=== PATIENT | female | born 1960 | race Caucasian/White ===

== ENCOUNTER 2017-03-21 05:31 | Inpatient (IN) | payer MEDICARE ==
[~2017-03-21] VITALS: Ht 157.5 cm; Wt 102.0 kg
[~2017-03-21 05:31] MED LIST: ESTR2TAB PO; HYDR200T3 PO; MEDR5TAB3 PO; METH2.5T PO; PARO40TA2 PO
[2017-03-21] MEDS ORDERED: LACTATED RINGER'S 1000 ML IV PRN (07:00)
[2017-03-21] MEDS ORDERED: SCOPOLAMINE 1.5 MG PATCH T-DERMAL SCH (07:00)
[2017-03-21] MEDS ORDERED: POVIDONE IODINE 5% (ANTISEPSIS KIT) 4 APPLICATIONS EACH NARE PRN (07:00)
[2017-03-21] MEDS ORDERED: METOPROLOL TARTRATE 25 MG TAB PO PRN (07:00)
[2017-03-21] MEDS ORDERED: CHLORHEXIDINE GLUCONATE 2 % 1 PACK (2 CLOTHS) TOPICAL PRN (07:00)
[2017-03-21] MEDS ORDERED: INSULIN HUMAN REGULAR 1,000 UNITS/10 ML VIAL SQ PRN (07:00)
[2017-03-21] MEDS ORDERED: ACETAMINOPHEN 1000 MG/100 ML 100 ML IV SCH (07:00)
[2017-03-21] MEDS ORDERED: APREPITANT 40 MG CAP PO SCH (07:00)
[2017-03-21] MEDS ORDERED: ONDANSETRON HCL 4 MG/2 ML VIAL IV PUSH SCH (07:00)
[2017-03-21] MEDS ORDERED: SODIUM CHLORID 0.9% 500 ML IV PRN (07:00)
[2017-03-21] MEDS ORDERED: metroNIDAZOLE 500 MG INJ 100 ML IV ONE (11:00)
--- NOTE | 2017-03-21 11:38 | HHI.PR ---
Immediate Post Op Note Procedure Date: Mar 21, 2017 Pre Op Diagnosis: morbid obesity, bmi 40, hypercholesteremia, RA Post Op Diagnosis: same Surgeon: Vishal Hawthorne MD Targeting Acquisition Officer(s): sergio Procedure: lap sleeve gastrectomy hiatal hernia repair Findings: no leak Complications: none Specimen(s) removed: none Estimated blood loss: 5cc Anesthesia: General Drains: None Patient to: PACU Patient Condition: Good Vishal Hawthorne MD Mar 21, 2017 11:38
[2017-03-21] MEDS: ceFAZolin 2 GM PREMIX 50 ML IV SCH ×2 (12:21→12:23)
[2017-03-21] MEDS ORDERED: BUPIVACAINE/EPINEPHRINE 0.25% 50 ML VIAL ONE (12:26)
[2017-03-21] MEDS ORDERED: DO NOT ADM ANY ANTICOAGULANT DRUGS PRN ×3 (13:10→19:43)
[2017-03-21] MEDS ORDERED: MIDAZOLAM HCL 2 MG/2 ML VIAL ONE (13:14)
[2017-03-21] MEDS ORDERED: diphenhydrAMINE HCL 50 MG/ML VIAL IV PUSH PRN (13:15)
[2017-03-21] MEDS: SODIUM CHLORIDE 0.9% FLUSH 10 ML FLUSH IV FLUSH SCH ×2 (13:15→20:45)
[2017-03-21] MEDS ORDERED: ACETAMINOPHEN 325MG/HYDROcodone 7.5MG/15ML UDC PO PRN (13:15)
[2017-03-21] MEDS ORDERED: Post-op Orders (for Pharmacy) OTHER ONE (13:15)
[2017-03-21] MEDS ORDERED: ENALAPRILAT 1.25 MG/ML VIAL IV PUSH PRN (13:15)
[2017-03-21] MEDS ORDERED: diphenhydrAMINE HCL ELIXIR 12.5 MG/5 ML CUP PO PRN (13:15)
[2017-03-21] MEDS ORDERED: ONDANSETRON HCL 4 MG/2 ML VIAL IV PUSH PRN (13:15)
[2017-03-21] MEDS ORDERED: SODIUM CHLORIDE 0.9% FLUSH 10 ML FLUSH IV FLUSH PRN (13:15)
[2017-03-21] MEDS ORDERED: *morphine SULFATE 10 MG/ML PERIprocedure ONLY ONE ×2 (13:31→14:35)
[2017-03-21] MEDS ORDERED: PANTOPRAZOLE SOD 40 MG DELAYED RELEASE TAB PO SCH (14:00)
[2017-03-21] MEDS: METOCLOPRAMIDE HCL 10 MG/2 ML VIAL IV PUSH SCH ×2 (14:00→20:44)
[2017-03-21] MEDS ORDERED: PANTOPRAZOLE SODIUM 40 MG VIAL ONE (14:14)
[2017-03-21] MEDS ORDERED: MORPHINE SULFATE 30 MG/30 ML PCA ONE (14:35)
[2017-03-21] MEDS: D5-1/2 NS + KCL 20 MEQ INJ 1,000 ML IV SCH (14:45)
[2017-03-21] MEDS ORDERED: NALOXONE HCL 0.4 MG/ML AMP IV PUSH PRN (15:00)
[2017-03-21] MEDS: PANTOPRAZOLE SODIUM 40 MG VIAL IV SCH (15:00)
[2017-03-21] MEDS ORDERED: MORPHINE SULFATE 30 MG/30 ML PCA IV SCH (15:00)
[2017-03-21 16:00] VITALS: BP 181/92; PULSE 70; RESP 16; TEMP 97.4; O2SAT 95
[2017-03-21] MEDS: ACETAMINOPHEN 1000 MG/100 ML 100 ML IV SCH (16:40)
[2017-03-21] MEDS: ENOXAPARIN SODIUM 40 MG/0.4 ML SYRINGE SQ SCH (16:50)
[2017-03-21 18:54] VITALS: BP 192/97
[2017-03-21 20:00] VITALS: BP 166/76; PULSE 52; RESP 17; TEMP 99.1; O2SAT 94
[2017-03-21] MEDS ORDERED: cloNIDine HCL 0.1 MG/24 HR PATCH T-DERMAL SCH (21:00)
[2017-03-21] MEDS ORDERED: REMOVE OLD PATCH T-DERMAL SCH (21:00)
[2017-03-21] MEDS: PCA - TOTAL MG MORPHINE DELIVERED PER SHIFT SCH (22:00)
[2017-03-21] MEDS: metroNIDAZOLE 500 MG INJ 100 ML IV SCH (22:08)
[2017-03-22] VITALS (7 sets, daily range): BP systolic 115–139; BP diastolic 63–72; PULSE 62–86; RESP 17–18; TEMP 98.3–101.9; O2SAT 95–98
[2017-03-22] MEDS: METOCLOPRAMIDE HCL 10 MG/2 ML VIAL IV PUSH SCH ×2 (02:43→08:19)
[2017-03-22] MEDS: metroNIDAZOLE 500 MG INJ 100 ML IV SCH ×2 (04:32→10:29)
[2017-03-22] MEDS: PCA - TOTAL MG MORPHINE DELIVERED PER SHIFT SCH (06:00)
[2017-03-22] MEDS: D5-1/2 NS + KCL 20 MEQ INJ 1,000 ML IV SCH ×4 (06:00→22:51)
[2017-03-22] MEDS: ACETAMINOPHEN 1000 MG/100 ML 100 ML IV SCH ×3 (06:07→10:26)
[2017-03-22] MEDS: SODIUM CHLORIDE 0.9% FLUSH 10 ML FLUSH IV FLUSH SCH ×2 (08:20→22:58)
[2017-03-22 08:37] LABS: AUTOMATED NEUTROPHIL # 4.8 TH/MM3 (1.8-7.7); BASOPHIL % 0.1 % (0.0-2.0); EOSINOPHIL % 0.1 % (0.0-4.0); HEMATOCRIT 35.5 % (35.0-46.0); HEMOGLOBIN 12.2 GM/DL (11.6-15.3); LYMPH % 8.9 % (9.0-44.0); LYMPHOCYTE # 0.5 TH/MM3 (1.0-4.8); MEAN CELL VOLUME 95.2 FL (80.0-100.0); MEAN CORPUSCULAR HEMOGLOBIN 32.9 PG (27.0-34.0); MEAN CORPUSCULAR HGB CONC 34.5 % (32.0-36.0); MONO % 8.2 % (0.0-8.0); MONOCYTE # 0.5 TH/MM3 (0-0.9); NEUT % 82.7 % (16.0-70.0); PLATELET COUNT 159 TH/MM3 (150-450); RED BLOOD COUNT 3.73 MIL/MM3 (4.00-5.30); RED CELL DISTRIBUTION WIDTH 13.5 % (11.6-17.2); WHITE BLOOD COUNT 5.8 TH/MM3 (4.0-11.0)
[2017-03-22 08:53] LABS: BICARBONATE 24.2 MEQ/L (21.0-32.0); CALCIUM 8.7 MG/DL (8.5-10.1); CREATININE 0.71 MG/DL (0.50-1.00); MAGNESIUM 2.1 MG/DL (1.5-2.5)
[2017-03-22] MEDS: PARoxetine HCL 20 MG TAB PO SCH (10:29)
--- NOTE | 2017-03-22 12:16 | HHI.PR ---
Subjective Subjective Notes Patient laying in bed with no GI complaints. Tolerating PO fluids well. Overnight she became hypertensive though she has not outside diagnosis of hypertension. She was placed on clonidine patch which seemed to resolve the issue. Objective Vitals/I&O Vital Signs Date Time Temp Pulse Resp B/P (MAP) Pulse Ox O2 Delivery O2 Flow Rate FiO2 03/22/17 08:00 98.6 82 17 115/66 (82) 96 03/21/17 15:00 Nasal Cannula 2 Labs Laboratory Tests Test 03/22/17 07:10 White Blood Count 5.8 Red Blood Count 3.73 Hemoglobin 12.2 Hematocrit 35.5 Mean Corpuscular Volume 95.2 Mean Corpuscular Hemoglobin 32.9 Mean Corpuscular Hemoglobin Concent 34.5 Red Cell Distribution Width 13.5 Platelet Count 159 Mean Platelet Volume 9.0 Neutrophils (%) (Auto) 82.7 Lymphocytes (%) (Auto) 8.9 Monocytes (%) (Auto) 8.2 Eosinophils (%) (Auto) 0.1 Basophils (%) (Auto) 0.1 Neutrophils # (Auto) 4.8 Lymphocytes # (Auto) 0.5 Monocytes # (Auto) 0.5 Eosinophils # (Auto) 0.0 Basophils # (Auto) 0.0 CBC Comment DIFF FINAL Differential Comment Blood Urea Nitrogen 7 Creatinine 0.71 Random Glucose 109 Calcium Level 8.7 Magnesium Level 2.1 Sodium Level 138 Potassium Level 3.7 Chloride Level 106 Carbon Dioxide Level 24.2 Anion Gap 8 Estimat Glomerular Filtration Rate 85 Cardiovascular: Regular Lungs: Clear Abdomen: Post-op tenderness Extremities: Perfused Wound Wound : Wound Location: Abdomen Appearance: Clean & Dry A/P Assessment and Plan 57 yoF POD# 1 laparoscopic VSG -Will wean off clonidine patch and see how she does. PO clonidine available if needed -Monitor temp CBC in AM and CXR -Respiratory toilet with EZ pap -Transition to oral pain control -Continue with frequent ambulation Discharge Planning Depending on hospital course Dion Morris Mar 22, 2017 12:16
[2017-03-22] MEDS ORDERED: METOCLOPRAMIDE HCL 10 MG/2 ML VIAL IV PUSH PRN (13:15)
[2017-03-22] MEDS: ACETAMINOPHEN 325MG/HYDROcodone 7.5MG/15ML UDC PO PRN ×2 (15:36→22:47)
[2017-03-22] MEDS: ENOXAPARIN SODIUM 40 MG/0.4 ML SYRINGE SQ SCH (15:36)
[2017-03-22] MEDS: PANTOPRAZOLE SODIUM 40 MG VIAL IV SCH (15:36)
--- NOTE | 2017-03-22 16:03 | MP ---
cc: ERICK HAWTHORNE MD DATE OF SURGERY: 03/21/2017 PREOPERATIVE DIAGNOSIS: Morbid obesity BMI of 40, Hypercholesteremia Rheumatoid arthritis PROCEDURE PREFORMED: 1. Laparoscopic sleeve gastrectomy 2. Laparoscopic hiatal hernia repair. SURGEON Dr. Erick Hawthorne VAMP MAKER: Dr. Hang Ryan was needed due to the complexity of the case. Dr. Ryan assisted with exposure manipulation of the procedure. ANESTHESIA GETA. IV FLUIDS See anesthesia. ESTIMATED BLOOD LOSS 10 cc. DRAINS: None COMPLICATIONS None. WOUND CLASSIFICATION: Clean contaminated FINDINGS No leak of methylene blue small hiatal hernia. SPECIMENS: Specimens were none INDICATION The patient is a 57-hour-old female presents with multiple attempts at weight loss without success. The patient with morbid obesity BMI of 40, hypercholesteremia and arthritis. Decision was made for a laparoscopic sleeve gastrectomy hiatal hernia repair. PROCEDURE IN DETAIL The patient was taken operating suite, placed in supine position. She was prepped and draped in usual sterile fashion after induction of general trache anesthesia. Brief time-out done stating correct patient, procedure surgical site and all illness. Attention was directed to the xyphoid 15 cm distal at midline local anesthetic injected. A stab rupa incision made with 11-blade. A 5 mm Optiview port was placed. Pneumoperitoneum obtained to 15 mms. Cursory inspection no evidence of injury. Several other trocars placed including a right lower quadrant 15 mm right upper quadrant 5-mm liver retractor and two left lower quadrant 5 mm ports. The all done under direct visualization. Local anesthetic injected prior to. The patient placed in reverse Trendelenburg and planed to the right. Kacie Flex retractor was placed left lobe of the liver was retracted. Using the Robot arm. The vasculature was taken down along the greater curve of the stomach with the harmonic scalpel. From 5 cm proximal pylorus with the angle of his. Posterior ligamentous attachments were as well. There was noted to be a hiatal hernia identified. The left and right paola and diaphragm were dissected anteriorly. GE junction was mobilized. The stomach was mobilized down into the abdominal cavity. Hernia was reduced. The anterior left and right crura of the diaphragm were approximated with 0 suture, [id number] fashion. This was done over a 36 VisiG Bougie. The visig bougie was then advanced down the pylorus and commencement of division of the stomach 5 cm proximal pylorus all they up to the angle of HIS. excised approximately 80% again using the 36 [place] Bougie, as a calibration device. This sleeve gastrectomy was done with the Endo-ALETA stapler with initial black load followed by green and gold loads. These were reinforced gold loads. This was done at a distance 2 cm from the angle area all the way up the staple line 1 cm from GE junction. The Bougie was insufflated with methylene blue x 2 syringes without evidence of saline leaking. Everseal was placed, all bleeding points controlled to the staple lines, the stomach was removed from the right lower quadrant 2 mm port site. 15 mm port site was closed with [id number] fashion of 0 Vicryl. This was done in sutured fashion. The ports were closed with subcuticular suture, 4-0 Monocryl after removal pneumoperitoneum. The patient tolerated procedure well, has no intraoperative complications. All lap and is not counts were correct at the procedure the patient was x-rayed taken to the PACU. MD JOSEFINA Mckeon/hannah /9:14 PM /2:44 PM
[2017-03-22] MEDS ORDERED: cloNIDine HCL 0.1 MG TAB PO PRN (16:15)
--- NOTE | 2017-03-22 20:15 | RADRPT ---
EXAM DATE/TIME: 03/22/2017 19:58 [facility] COMPARISON: No previous studies available for comparison. INDICATIONS : Fever MEDICAL HISTORY : None. SURGICAL HISTORY : None. ENCOUNTER: Initial ACUITY: 1 day PAIN SCORE: 0/10 LOCATION: Bilateral chest FINDINGS: A single view of the chest demonstrates the lungs to be symmetrically aerated without evidence of mas s, infiltrate or effusion. The cardiomediastinal contours are unremarkable. Osseous structures are intact. CONCLUSION: No acute disease. James Veronica Jr., MD on March 22, 2017 at 20:12 Board Certified Radiologist. This report was verified electronically.
[2017-03-23] VITALS: BP 113/57; PULSE 80; RESP 20; TEMP 100.2; O2SAT 94
[2017-03-23 04:00] VITALS: BP 113/57; PULSE 100; RESP 20; TEMP 99.3; O2SAT 94
[2017-03-23] MEDS: ACETAMINOPHEN 325MG/HYDROcodone 7.5MG/15ML UDC PO PRN ×2 (05:18→12:02)
[2017-03-23] MEDS: D5-1/2 NS + KCL 20 MEQ INJ 1,000 ML IV SCH ×3 (05:18→22:00)
[2017-03-23 08:00] VITALS: BP 108/64; PULSE 80; RESP 16; TEMP 97.3; O2SAT 97
[2017-03-23] MEDS: OSELTAMIVIR PHOSPHATE 6 MG/ML 60 ML SUSP PO SCH ×2 (08:32→21:48)
[2017-03-23] MEDS: PARoxetine HCL 20 MG TAB PO SCH (08:34)
[2017-03-23] MEDS: SODIUM CHLORIDE 0.9% FLUSH 10 ML FLUSH IV FLUSH SCH ×2 (08:36→21:00)
[2017-03-23 08:42] LABS: HEMATOCRIT 37.8 % (35.0-46.0); HEMOGLOBIN 12.9 GM/DL (11.6-15.3); MEAN CELL VOLUME 95.8 FL (80.0-100.0); MEAN CORPUSCULAR HEMOGLOBIN 32.7 PG (27.0-34.0); MEAN CORPUSCULAR HGB CONC 34.1 % (32.0-36.0); MEAN PLATELET VOLUME 9.1 FL (7.0-11.0); PLATELET COUNT 136 TH/MM3 (150-450); RED BLOOD COUNT 3.94 MIL/MM3 (4.00-5.30); RED CELL DISTRIBUTION WIDTH 13.8 % (11.6-17.2); WHITE BLOOD COUNT 4.9 TH/MM3 (4.0-11.0)
[2017-03-23] MEDS ORDERED: DIATRIZOATE MEGLUM/DIATRIZOATE SOD 120 ML BTL (for RAD DIAG) PO ONE (09:30)
[2017-03-23 09:43] LABS: CALCIUM 8.5 MG/DL (8.5-10.1); CREATININE 0.84 MG/DL (0.50-1.00)
--- NOTE | 2017-03-23 10:03 | RADRPT ---
EXAM DATE/TIME: 03/23/2017 09:07 [facility] COMPARISON: No previous studies available for comparison. INDICATIONS : Status post sleeve gastrectomy. Evaluate for leaks. FLUORO TIME: 0.9 minutes IMAGE COUNT: 10 CONTRAST: 1. MD Clancy MEDICAL HISTORY : None. SURGICAL HISTORY : None. ENCOUNTER: Subsequent ACUITY: 3 days PAIN SCORE: 7/10 LOCATION: Bilateral abdomen. FINDINGS: Examination performed under fluoroscopic control with Gastrografin. Esophagus is normal in stump is n egative with apparent gastric sleeve surgery no evidence of extravasation or obstruction with normal gastric outflow duodenal bulb pyloric channel and proximal duodenum. CONCLUSION: Unremarkable upper gastrointestinal examination. Judson Thomas MD on March 23, 2017 at 10:00 Board Certified Radiologist. This report was verified electronically.
--- NOTE | 2017-03-23 11:51 | HHI.PR ---
Subjective Subjective Notes Feeling somewhat nauseous after UGI, able to tolerate PO fluids. BP much improved, temp down Objective Vitals/I&O Vital Signs Date Time Temp Pulse Resp B/P (MAP) Pulse Ox O2 Delivery O2 Flow Rate FiO2 03/23/17 08:00 97.3 80 16 108/64 (79) 97 03/21/17 15:00 Nasal Cannula 2 Labs Laboratory Tests Test 03/23/17 08:08 White Blood Count 4.9 Red Blood Count 3.94 Hemoglobin 12.9 Hematocrit 37.8 Mean Corpuscular Volume 95.8 Mean Corpuscular Hemoglobin 32.7 Mean Corpuscular Hemoglobin Concent 34.1 Red Cell Distribution Width 13.8 Platelet Count 136 Mean Platelet Volume 9.1 Blood Urea Nitrogen 7 Creatinine 0.84 Random Glucose 96 Calcium Level 8.5 Sodium Level 136 Potassium Level 3.7 Chloride Level 103 Carbon Dioxide Level 27.0 Anion Gap 6 Estimat Glomerular Filtration Rate 70 Radiology Last Impressions Upper GI Series 03/23/17 0000 Signed Impressions: Service Date/Time: Thursday, March 23, 2017 09:07 - CONCLUSION: Unremarkable upper gastrointestinal examination. Judson Thomas MD Chest X-Ray 03/22/17 0000 Signed Impressions: Service Date/Time: March 19:58 - CONCLUSION: No acute disease. James Veronica Jr., MD Cardiovascular: Regular Lungs: Upper airway course sound Abdomen: Post-op tenderness Extremities: Perfused Wound Wound : Wound Location: Abdomen Appearance: Clean & Dry A/P Assessment and Plan 57 yoF POD# 2 laparoscopic VSG -CBC, CXR, UGI negative, possible flu? Though TMAX would suggest otherwise. Tamiflu given -Continue with frequent ambulation -Continue to increase fluids as tolerated -Will observe for one more night, if no fevers overnight, ok to discharge tomorrow Discharge Planning Depending on hospital course, possibly later today Dion Morris Mar 23, 2017 11:51
[2017-03-23 12:00] VITALS: BP 108/56; PULSE 78; RESP 17; TEMP 98.9; O2SAT 95
[2017-03-23] MEDS: SUCRALFATE 1 GM/10 ML CUP PO SCH ×3 (12:51→21:47)
[2017-03-23 16:00] VITALS: BP 110/70; PULSE 76; RESP 16; TEMP 98.7; O2SAT 98
[2017-03-23] MEDS: PANTOPRAZOLE SODIUM 40 MG VIAL IV SCH (16:07)
[2017-03-23] MEDS: ENOXAPARIN SODIUM 40 MG/0.4 ML SYRINGE SQ SCH (18:17)
--- NOTE | 2017-03-23 19:09 | HHI.DS ---
Discharge Summary Admission Date Mar 21, 2017 at 05:31 Discharge Date: Mar 24, 2017 Admitting Diagnosis Procedures laparoscopic vertical sleeve gastrectomy Brief History 57yo F with morbid obesity complicated by rheumatoid arthritis and hyperlipidemia presented for elective bariatric surgery CBC/BMP: 03/23/17 0808 03/23/17 0808 Significant Findings Laboratory Tests Test 03/22/17 07:10 03/23/17 08:08 Red Blood Count 3.73 MIL/MM3 (4.00-5.30) 3.94 MIL/MM3 (4.00-5.30) Neutrophils (%) (Auto) 82.7 % (16.0-70.0) Lymphocytes (%) (Auto) 8.9 % (9.0-44.0) Monocytes (%) (Auto) 8.2 % (0.0-8.0) Lymphocytes # (Auto) 0.5 TH/MM3 (1.0-4.8) Random Glucose 109 MG/DL (74-106) Estimat Glomerular Filtration Rate 85 ML/MIN (>89) 70 ML/MIN (>89) Platelet Count 136 TH/MM3 (150-450) Imaging Last Impressions Upper GI Series 03/23/17 0000 Signed Impressions: Service Date/Time: Thursday, March 23, 2017 09:07 - CONCLUSION: Unremarkable upper gastrointestinal examination. Judson Thomas MD Chest X-Ray 03/22/17 0000 Signed Impressions: Service Date/Time: March 19:58 - CONCLUSION: No acute disease. James Veronica Jr., MD PE at Discharge CARDIOVASCULAR: Regular rate and rhythm without murmurs, gallops, or rubs. RESPIRATORY: Breath sounds equal bilaterally. No accessory muscle use. GASTROINTESTINAL: post-op tenderness MUSCULOSKELETAL: No cyanosis, or edema. Hospital Course The procedure was performed without incident. That evening the patient developed what was thought to be post-procedural hypertension. She was given a clonidine patch then slowly weaned off as her BP normalized. She also developed some upper respiratory symptoms and low grade fever. WBC and CXR were negative and patient was given Tamiflu prophylactically. She was discharged home in stable condition without any GI complaints. Pt Condition on Discharge: Stable Discharge Disposition: Discharge Home Discharge Instructions DIET: Follow Instructions for: Bariatric Surgery Diet Activities you can perform: Shower Only-No Bath Activities to Avoid: Strenuous Activity Follow up Referrals: Surgical - 03/28/17 @ [facility]/Trauma with Vishal Hawthorne MD Continued Medications: Paroxetine (Paroxetine) 40 Mg Tab 40 MG PO DAILY, #30 TAB 0 Refills Discontinued Medications: Estradiol (Estradiol) 2 Mg Tab 2 MG PO DAILY for Estrogen Supplements, #30 TAB 0 Refills Hydroxychloroquine (Hydroxychloroquine) 200 Mg Tab 200 MG PO DAILY, #30 TAB 0 Refills Takw with food Medroxyprogesterone Acetate (Medroxyprogesterone Acetate) 5 Mg Tab 5 MG PO DAILY for Uterine bleeding, #5 TAB 0 Refills Start day 21 Methotrexate (Methotrexate) 2.5 Mg Tab 25 MG PO Q7D, TAB 0 Refills Additional Information This patient was examined by Dr. Hawthorne and this note was dictated on his behalf Dion Morris Mar 23, 2017 19:09
[2017-03-23 20:51] VITALS: BP 113/61; PULSE 70; RESP 20; TEMP 100.5; O2SAT 92
[2017-03-24 00:01] VITALS: BP 124/68; PULSE 84; RESP 20; TEMP 100.3; O2SAT 93
[2017-03-24 05:04] VITALS: BP 115/73; PULSE 70; RESP 20; TEMP 99.7; O2SAT 92
[2017-03-24] MEDS: D5-1/2 NS + KCL 20 MEQ INJ 1,000 ML IV SCH (06:00)
[2017-03-24 08:00] VITALS: BP 107/70; PULSE 70; RESP 18; TEMP 99; O2SAT 97
[2017-03-24] MEDS: PARoxetine HCL 20 MG TAB PO SCH (09:15)
[2017-03-24] MEDS: OSELTAMIVIR PHOSPHATE 6 MG/ML 60 ML SUSP PO SCH (09:16)
[2017-03-24] MEDS ORDERED: OSEL75 PO (10:54)
== END 2017-03-24 11:38 | disposition home or self-care (01) | DRG 621 ==
LOC: HSDI 05:31 → N07B 16:10
PROVIDERS: ADMIT Surgery; ATTEND Surgery
PROC: 0BQT4ZZ Repair Diaphragm, Percutaneous Endoscopic Approach (ICD-10-PCS; 2017-03-21)
PROC: 0DB64Z3 Excision of Stomach, Percutaneous Endoscopic Approach, Vertical (ICD-10-PCS; principal; 2017-03-21 11:09)
DX: E66.01 Morbid (severe) obesity due to excess calories (principal); E55.9 Vitamin D deficiency, unspecified; K44.9 Diaphragmatic hernia without obstruction or gangrene; E78.00 Pure hypercholesterolemia, unspecified; M06.9 Rheumatoid arthritis, unspecified; F17.210 Nicotine dependence, cigarettes, uncomplicated; Z68.41 Body mass index [BMI] 40.0-44.9, adult; R11.0 Nausea; R50.9 Fever, unspecified; I97.3 Postprocedural hypertension
CPT/HCPCS: 71045; 74240; 80048; 83735; 85025; 85027; 94150; 94640; C9113; J0131; J0690; J1650; J2250; J2270; J2405; J2765; J3010; J3480; J7120; J8501; Q9963